=== PATIENT | female | born 1945 | race African-American/Black ===

== ENCOUNTER 2016-12-04 14:59 | Inpatient (IN) | payer MEDICAID, MEDICARE ==
[2016-12-04 15:25] LABS: Basophils % (Auto) 0.2 % (0.0-1.8); Eosinophils % (Auto) 0.5 % (0.0-4.3); Hemoglobin 11.8 gm/dl (10.1-14.3); Mean Corpuscular HGB Conc 34 % (30-34); Mean Corpuscular Hemoglobin 29 pg (28-32); Mean Corpuscular Volume 87 fl (79-97); Platelet Count 403 K/mm3 (140-440); Red Blood Count 4.03 M/mm3 (3.65-5.03); Red Cell Distribution Width 12.5 % (13.2-15.2); White Blood Count 9.4 K/mm3 (4.5-11.0)
[2016-12-04 15:45] LABS: Alanine Aminotransferase 17 units/L (7-56); Albumin 3.3 g/dL (3.9-5); Albumin/Globulin Ratio 0.9 %; Alkaline Phosphatase 65 units/L (35-129); Anion Gap 20 mmol/L; Blood Urea Nitrogen 9 mg/dL (7-17); Carbon Dioxide 23 mmol/L (22-30); Chloride 88.3 mmol/L (98-107); Glucose 107 mg/dL (65-100); Lipase 39 units/L (13-60); Potassium 4.2 mmol/L (3.6-5.0); Sodium 127 mmol/L (137-145)
[2016-12-04] MEDS ORDERED: TYLENOL PO ONE (18:29)
--- NOTE | 2016-12-04 22:07 | Emergency Department Report ---
HPI - General Chief Complaint: Abdominal Pain Time Seen by Provider: 12/04/16 21:16 - HPI HPI: This is a 70-year-old female who presents to the emergency department with generalized abdominal pain for the past few days and is about 3 weeks postop from a cholecystectomy done here at Replaced by [facility] by Dr. Rose. She has had outpatient follow-up since the surgery and everything appeared to be doing fine. She has not had a bowel movement in about 2 days. She denies any nausea, vomiting, back pain, fever. She has a past medical history of asthma, high cholesterol, hypertension. No recent travel or sick contacts at home. She has not taken anything for symptoms prior to presentation. ED Past Medical Hx - Past Medical History Previous Medical History?: Yes Hx Hypertension: Yes Hx Asthma: Yes Hx HIV: No Additional medical history: high cholesterol - Surgical History Past Surgical History?: Yes Hx Cholecystectomy: Yes - Social History Smoking Status: Never Smoker Substance Use Type: None - Medications Home Medications: Home Medications Medication Instructions Recorded Confirmed Last Taken Type Nortriptyline [Pamelor] 25 mg PO QDAY 10/24/16 12/05/16 10/23/16 History Omeprazole Magnesium [PriLOSEC Otc] 40 mg PO QDAY 10/24/16 12/05/16 Unknown History Atenolol [Tenormin] 25 mg PO DAILY 12/05/16 12/05/16 Unknown History Gabapentin [Neurontin] 100 mg PO Q8HR 12/05/16 12/05/16 Unknown History Losartan [Cozaar] 25 mg PO QDAY 12/05/16 12/05/16 Unknown History HYDROcodone/APAP 5-325 [[place] 1 each PO Q6HR PRN #24 tablet 12/06/16 Unknown Rx 5-325 mg TAB] Levofloxacin [Levaquin] 750 mg PO QDAY #7 tablet 12/06/16 Unknown Rx metroNIDAZOLE [Flagyl] 500 mg PO Q8HR #21 tablet 12/06/16 Unknown Rx ED Review of Systems ROS: Stated complaint: POST OP PAIN/ STOMACH SWOLLEN Other details as noted in HPI Comment: All other systems reviewed and negative Constitutional: denies: chills, fever Eyes: denies: eye pain, eye discharge, vision change ENT: denies: ear pain, throat pain Respiratory: denies: cough, shortness of breath, wheezing Cardiovascular: denies: chest pain, palpitations Gastrointestinal: abdominal pain. denies: vomiting Genitourinary: denies: urgency, dysuria, discharge Musculoskeletal: denies: back pain, joint swelling, arthralgia Skin: denies: rash, lesions Neurological: denies: headache, weakness, paresthesias Physical Exam - Physical Exam Vital Signs: Vital Signs 12/04/16 12/04/16 12/04/16 15:02 21:31 21:44 Temperature 98.1 F 98.2 F Pulse Rate 87 85 Respiratory 16 20 20 Rate Blood Pressure 126/79 Blood Pressure 122/67 [Left] O2 Sat by Pulse 99 99 99 Oximetry Physical Exam: GENERAL: The patient is well-developed well-nourished. HEENT: Normocephalic. Atraumatic. Extraocular motions are intact. Patient has moist mucous membranes. NECK: Supple. Trachea is midline. CHEST/LUNGS: Clear to auscultation. There is no respiratory distress noted. HEART/CARDIOVASCULAR: Regular. There is mild tachycardia. There is no gallop rub or murmur. ABDOMEN: Abdomen is soft. Mild tenderness to the upper quadrants of the abdomen. No guarding rebound tenderness. Patient has normal bowel sounds but fluid auscultated. There is moderate abdominal distention. SKIN: There is a well-healed/healing laparoscopy scar to the right upper quadrant of the abdomen. No surrounding erythema and no bleeding or weeping or discharge. NEURO: The patient is awake, alert, and oriented. The patient is cooperative. The patient has no focal neurologic deficits. The patient has normal speech. MUSCULOSKELETAL: There is no tenderness or deformity. There is no limitation range of motion. There is no evidence of acute injury. ED Course Vital Signs 12/04/16 12/04/16 12/04/16 15:02 21:31 21:44 Temperature 98.1 F 98.2 F Pulse Rate 87 85 Respiratory 16 20 20 Rate Blood Pressure 126/79 Blood Pressure 122/67 [Left] O2 Sat by Pulse 99 99 99 Oximetry ED Medical Decision Making - Lab Data Result diagrams: 12/05/16 10:13 12/05/16 10:13 - Radiology Data Radiology results: report reviewed PROCEDURE: CT ABDOMEN PELVIS W CON TECHNIQUE: Computerized axial tomography of the abdomen and pelvis was performed after the IV injection of iodinated nonionic contrast. HISTORY: Abd pain, post op from lap miller COMPARISON: 10/27/2016 FINDINGS: Visualized lower thorax: There are small bilateral pleural effusions. There is atelectasis at the left lung base.. Liver: Normal size and attenuation. Spleen: Normal size and attenuation. Gallbladder and biliary system: There has been a cholecystectomy.. Pancreas: Normal. Adrenals: Normal. Kidneys: There are small bilateral kidney cysts. There are no kidney stones. There is no hydronephrosis.. GI tract: There thickening of the esophagus. The stomach antrum is thickened suggesting gastritis. The small bowel is unremarkable. There is mucosal thickening of the sigmoid colon and transverse colon suggesting colitis. There is no obstruction. The the appendix is not discretely identified.. Lymph nodes and mesentery: There is mesenteric induration. The there are borderline enlarged mesenteric lymph nodes. This could be related to colitis.. Vasculature: Normal. Bladder: Normal. Reproductive organs: Uterus is unremarkable.. Peritoneum: There is a large amount ascites. There is no free air. There is no abscess.. Musculoskeletal structures: No significant abnormality. Other: None. IMPRESSION: There are small bilateral pleural effusions. There is atelectasis at the left lung base.. There has been a cholecystectomy. There is no biliary ductal dilatation.. There thickening of the esophagus. The stomach antrum is thickened suggesting gastritis. The small bowel is unremarkable. There is mucosal thickening of the sigmoid colon and transverse colon suggesting colitis. There is no obstruction. The the appendix is not discretely identified.. There is mesenteric induration. The there are borderline enlarged mesenteric lymph nodes. This could be related to colitis.. There is a large amount ascites. There is no free air. There is no abscess.. Possibility of peritoneal carcinomatosis is not entirely excluded. Percutaneous paracentesis may be diagnostic. Transcribed By: CO Dictated By: MARIZA SEVILLA MD Electronically Authenticated By: MARIZA SEVILLA MD Signed Date/Time: 12/05/16 0240 - Medical Decision Making 71-year-old female presents to the emergency department with a complaint of some abdominal pain and distention. On physical exam the patient has some mild tenderness to palpation but otherwise does not appear to have a toxic original abdomen. There does appear to be some distention and some concern for fluid within the abdomen. Abdominal x-ray did not show any signs of obstruction. Secondary to her recent surgery, a CT of the abdomen and pelvis with IV and by mouth contrast was done that came back showing a large amount of ascites. I went back and looked at previous records for this patient here and she has had a previous elevated CA-125 level which, along with her findings, is concerning for malignancy or a neoplastic process and specifically something [employer] related. The patient will be admitted to the hospital for both a therapeutic and diagnostic paracentesis and further evaluation and has been accepted for admission by the hospitalist, Dr. Daigle. - Differential Diagnosis malignancy, cirrhosis, postop pain, colitis, diverticulitis Critical Care Time: No Critical care attestation.: If time is entered above; I have spent that time in minutes in the direct care of this critically ill patient, excluding procedure time. ED Disposition Clinical Impression: Colitis Ascites Qualifiers: Ascites type: other type Qualified Code(s): R18.8 - Other ascites Abdominal pain Qualifiers: Abdominal location: generalized Qualified Code(s): R10.84 - Generalized abdominal pain Disposition: OP ADMITTED IP TO THIS HOSP Is pt being admited?: Yes Condition: Stable Time of Disposition: 03:08
[2016-12-04 22:45] LABS: Bilirubin,Urine NEG (Negative); Blood,Urine NEG (Negative); Ketones,Urine 20 mg/dL (Negative); Leukocyte Esterase,Urine NEG (Negative); Nitrite,Urine NEG (Negative); Protein,Urine <15 mg/dL mg/dL (Negative); Urobilinogen,Urine < 2.0 mg/dL (<2.0)
[2016-12-04] MEDS ORDERED: NACL 0.9% 1000 ML 1,000 ML IV ONE (23:08)
[2016-12-05] MEDS ORDERED: NACL ONE (01:13)
[2016-12-05] MEDS ORDERED: MORPHINE IV ONE (02:14)
[2016-12-05] MEDS ORDERED: NACL 0.9% 500 ML 500 ML IV ONE (02:15)
--- NOTE | 2016-12-05 02:44 | Cat Scan Report ---
FINAL REPORT PROCEDURE: CT ABDOMEN PELVIS W CON TECHNIQUE: Computerized axial tomography of the abdomen and pelvis was performed after the IV injection of iodinated nonionic contrast. HISTORY: Abd pain, post op from lap miller COMPARISON: 10/27/2016 FINDINGS: Visualized lower thorax: There are small bilateral pleural effusions. There is atelectasis at the left lung base.. Liver: Normal size and attenuation. Spleen: Normal size and attenuation. Gallbladder and biliary system: There has been a cholecystectomy.. Pancreas: Normal. Adrenals: Normal. Kidneys: There are small bilateral kidney cysts. There are no kidney stones. There is no hydronephrosis.. GI tract: There thickening of the esophagus. The stomach antrum is thickened suggesting gastritis. The small bowel is unremarkable. There is mucosal thickening of the sigmoid colon and transverse colon suggesting colitis. There is no obstruction. The the appendix is not discretely identified.. Lymph nodes and mesentery: There is mesenteric induration. The there are borderline enlarged mesenteric lymph nodes. This could be related to colitis.. Vasculature: Normal. Bladder: Normal. Reproductive organs: Uterus is unremarkable.. Peritoneum: There is a large amount ascites. There is no free air. There is no abscess.. Musculoskeletal structures: No significant abnormality. Other: None. IMPRESSION: There are small bilateral pleural effusions. There is atelectasis at the left lung base.. There has been a cholecystectomy. There is no biliary ductal dilatation.. There thickening of the esophagus. The stomach antrum is thickened suggesting gastritis. The small bowel is unremarkable. There is mucosal thickening of the sigmoid colon and transverse colon suggesting colitis. There is no obstruction. The the appendix is not discretely identified.. There is mesenteric induration. The there are borderline enlarged mesenteric lymph nodes. This could be related to colitis.. There is a large amount ascites. There is no free air. There is no abscess.. Possibility of peritoneal carcinomatosis is not entirely excluded. Percutaneous paracentesis may be diagnostic.
[2016-12-05] MEDS ORDERED: ZOSYN/NS 4.5GM/100ML 4.5 GM/100 ML VIAL IV ONE (03:04)
[2016-12-05] MEDS ORDERED: ZOFRAN IV PRN (03:15)
[2016-12-05] MEDS ORDERED: MILK OF MAGNESIA PO PRN (03:15)
[2016-12-05] MEDS ORDERED: TYLENOL PO PRN (03:15)
[2016-12-05] MEDS ORDERED: DULCOLAX PR PRN (03:15)
--- NOTE | 2016-12-05 03:21 | History and Physical Report ---
History of Present Illness Date of examination: 12/05/16 History of present illness: 71-year-old woman with a history of hypertension, hyperlipidemia, status post cholecystectomy 2 weeks ago comes emergency room with abdominal pain. Abdominal pain is all overr, intermittent in nature, unable to say how long it lasts for, intensity 7/10, no radiation, she cannot identify exacerbating factors. He patient the she started having increased abdominal girth after cholecystectomy. Review of chart shows that the patient had an elevated CA-125 in October. Patient denies chest pain, palpitation, shortness of breath, cough, abdominal pain, hematochezia, dysuria, frequency, focal weakness, dysarthria, fever chills , polydipsia polyuria, hot or cold intolerance, easy bruisability, or rash or bleeding from mucosal membrane, rhinorrhea, epistaxis, earache, tinnitus, blurry vision, eye discharge, anxiety, depression. Other review of systems negative PAST SURGICAL HISTORY: Cholecystectomy SOCIAL HISTORY: Denies alcohol, tobacco, drugs FAMILY HISTORY: Hypertension Medications and Allergies Allergies Allergy/AdvReac Type Severity Reaction Status Date / Time No Known Allergies Allergy Unverified 10/24/16 13:41 Home Medications Medication Instructions Recorded Confirmed Last Taken Type Nortriptyline [Pamelor] 25 mg PO QDAY 10/24/16 12/05/16 10/23/16 History Omeprazole Magnesium [PriLOSEC Otc] 40 mg PO QDAY 10/24/16 12/05/16 Unknown History Atenolol [Tenormin] 25 mg PO DAILY 12/05/16 12/05/16 Unknown History Gabapentin [Neurontin] 100 mg PO Q8HR 12/05/16 12/05/16 Unknown History Losartan [Cozaar] 25 mg PO QDAY 12/05/16 12/05/16 Unknown History HYDROcodone/APAP 5-325 [[place] 1 each PO Q6HR PRN #24 tablet 12/06/16 Unknown Rx 5-325 mg TAB] Levofloxacin [Levaquin] 750 mg PO QDAY #7 tablet 12/06/16 Unknown Rx Polyethylene Glycol 3350 [Miralax 17 gm PO QDAY PRN #30 packet 12/06/16 Unknown Rx 3350] Sennosides/Docusate Sodium 2 each PO HS PRN #60 tablet 12/06/16 Unknown Rx [Senna-S Tablet] metroNIDAZOLE [Flagyl] 500 mg PO Q8HR #21 tablet 12/06/16 Unknown Rx Active Meds: Active Medications Piperacillin Sod/Tazobactam Sod (Zosyn/Ns 4.5gm/100ml) 4.5 gm in 100 mls @ 200 mls/hr IV ONCE ONE Stop: 12/05/16 03:33 Exam - Physical Exam Narrative exam: Gen. appearance: Patient lying in bed, no apparent distress HEENT: Normocephalic, atraumatic, pupils equally round and reactive to light, extraocular movement intact, and no sclericterus,. No JVD or thyromegaly or nodule,neck supple, no carotid bruit ,mucous membranes moist, no exudate or erythema Heart: S1, S2, regular rate and rhythm Lungs: Clear to auscultation bilaterally, breathing comfortable Abdomen: Positive bowel sounds, distended, + fluid wave, no organomegaly Extremity: No edema, cyanosis, clubbing Skin: No rash, nodules, warm, dry Neuro: Oriented 3, cranial nerves II-12 intact, speech is fluent, motor and sensory intact - Constitutional Vitals: Temp Pulse Resp BP Pulse Ox 98.3 F 95 H 20 136/88 98 12/05/16 02:13 12/05/16 02:13 12/05/16 02:27 12/05/16 02:13 12/05/16 02:13 Results - Labs CBC & Chem 7: 12/05/16 10:13 12/05/16 10:13 Labs: Abnormal lab results 12/04/16 12/04/16 Range/Units 15:12 15:12 RDW 12.5 L (13.2-15.2) % [place] % (Auto) 12.1 H (0.0-7.3) % [place] # 1.1 H (0.0-0.8) K/mm3 Seg Neutrophils % 73.5 H (40.0-70.0) % Sodium 127 L (137-145) mmol/L Chloride 88.3 L (98-107) mmol/L Creatinine 0.6 L (0.7-1.2) mg/dL Glucose 107 H (65-100) mg/dL Albumin 3.3 L (3.9-5) g/dL - Imaging and Cardiology CT scan - abdomen: report reviewed CT scan - pelvis: report reviewed Assessment and Plan Acute colitis Ascites with elevated CA 125, rule out ovarian cancer Hypertension Hyperlipidemia Admit to medicine Start IV Levaquin, Flagyl, consult GI Consult interventional radiology for diagnostic and therapeutic paracentesis Consult oncology Start IV morphine, continue appropriate outpatient medications Start DVT prophylaxis
--- NOTE | 2016-12-05 04:21 | Admit Criteria Form ---
Admission Criteria Documentation: ABDOMINAL PAIN Clinical Indications for Admission to Inpatient Care (Place 'X' for any and all applicable criteria): Admission is indicated for ANY ONE of the following(1)(2)(3)(4)(5): [X ]I. Inpatient admission required rather than observation care (Also use Abdominal Pain: Observation Care, as appropriate) because of ANY ONE of the following: [ ]a) Severe pain requiring acute inpatient management [X ]b) Identification of etiology/finding that requires inpatient care (eg, aortic dissection, free air) [ ]c) Absent bowel sounds with complete ileus(6) [ ]d) Suspected toxic megacolon [ ]e) Severe electrolyte abnormalities requiring inpatient care [ ]f) High fever or infection requiring inpatient admission as indicated by ANY ONE of following(7)(8): [ ] i) Appropriate outpatient or observational care antimicrobial treatment unavailable, not effective, or not feasible [ ] ii) Documented bacteremia [ ] iii) Temperature > 104.9 degrees F (oral) [ ] iv) T >103.1 F (oral) or < 96.8 F(rectal) that does not respond to all emergency treatment measures [ ]g) Signs of intestinal obstruction [B] [ ]h) Hemodynamic instability [ ]i) IV fluid to replace significant ongoing losses (greater than 3 L/m2 per day) (12)(13) [ ]j) Percutaneous or open drainage (eg, abscess, biliary tract ) procedures [ ]k) Parenteral nutrition regimen that must be implemented on inpatient basis [ ]l) Other condition,treatment or monitoring requiring inpatient admission. [ ]II. Peritoneal signs present [ ]III. Surgery needed that cannot be performed on an ambulatory basis. [ ]IV. Evaluation requires patient to not eat or drink for extended period ( eg, more than 24 hours). [ ]V. Contraindications and/or Inappropriate clinical situations for Observational Care in patients with abdominal pain, when ANY ONE of the following is required: [ ]a) Thorough evaluation is required to prevent catastrophic events due to delays in diagnosing (e.g.Mesenteric ischemia) 1,3 [ ]b) Patient with severe pathology or with chronic symptoms unlikely to improve in the ED stay (3) [X ]. General contraindications and/or Inappropriate clinical situations for Observational Care in patients with abdominal pain, when ANY ONE of the following is required: [X ]a) Prediction of prolongation of LOS based on ANY ONE of the following may be considered as a contraindication for observational care 2, 3, 4, 5, 6, 7, 8, 9, 10, 11 [ X]i) Age > 65 yrs. [ ]ii) Patient arriving by ambulance [ ]iii) Patient with high acuity [ ]iv) Patient requiring vital sign monitoring [ ]v) Patient on IV medication [ ]b) Systolic blood pressures 180mmHg 3,12 [ ]c) Patient with altered mental status including delirium and other alteration of consciousness, (3) [ ]d) Patient whose discharge disposition will be to a nursing home home or rehabilitation home should not be managed in Emergency Department Observation Unit. CMS rule requires 3 days hospital stay before such placement.3,13 [ ]e) Patient with failure to thrive due to broad array of etiologies 3,16,17 [ ]f) Inability to ambulate 3,14 Extended stay beyond goal length of stay may be needed for(2)(3): [ ]a) Persistent abdominal pain with suspected intra-abdominal process [ ]b) Diagnosed condition requiring continued stay (e.g., pancreatitis, complicated diverticulitis) [ ]c) Surgery (e.g., colectomy) The original [facility] [email or web address] content created by [email or web address] has been revised. The portions of the content which have been revised are identified through the use of italic text or in bold, and [facility] has neither reviewed nor approved the modified material.All other unmodified content is copyright [employer]. Please see references footnoted in the original [facility] edition 2016 Admission Criteria Met: Yes
[2016-12-05] MEDS: FLAGYL 500 MG/100 ML 500 MG/100 ML BAG IV SCH ×3 (06:14→21:17)
--- NOTE | 2016-12-05 09:15 | Gastroenterology Consultation ---
<TAYLOR DOTY - Last Filed: 12/05/16 09:41> History of Present Illness - Reason for Consult Consult date: 12/05/16 acute colitis Requesting physician: MANDI SHANKS - History of Present Illness Patient is a 71 y/o female, who speaks very little Bulgarian. Pt sitting up in bed with family at bedside who assisted with translation. PMH of HTN and hyperlipidemia. She was admitted with generalized abdominal pain yesterday. Rating pain a 5/10 today. Reports abd pain and swelling began after colecystectomy 2 weeks ago. Patient was noted to have an elevated CA125 back in October. Family reports a 15 lb wt loss over the past month. Patient denies fever, chills, N/V, hematemesis, diarrhea, constipation, melena, or hematochezia. No tobacco, alcohol, or NSAID use. No FHX of CA. No hx of CHG, liver disease or IBD. Previous colonoscopy unknown. Past History Past Medical History: hypertension, hyperlipidemia Past Surgical History: cholecystectomy Social history: no significant social history Family history: no significant family history Medications and Allergies Allergies Allergy/AdvReac Type Severity Reaction Status Date / Time No Known Allergies Allergy Unverified 10/24/16 13:41 Home Medications Medication Instructions Recorded Confirmed Last Taken Type Nortriptyline [Pamelor] 25 mg PO QDAY 10/24/16 12/05/16 10/23/16 History Omeprazole Magnesium [PriLOSEC Otc] 40 mg PO QDAY 10/24/16 12/05/16 Unknown History HYDROcodone/APAP 5-325 [[place] 1 each PO Q6HR PRN #24 tablet 11/16/16 12/05/16 Unknown Rx 5/325] Atenolol [Tenormin] 25 mg PO DAILY 12/05/16 12/05/16 Unknown History Gabapentin [Neurontin] 100 mg PO Q8HR 12/05/16 12/05/16 Unknown History Losartan [Cozaar] 25 mg PO QDAY 12/05/16 12/05/16 Unknown History Active Meds: Active Medications Acetaminophen (Tylenol) 650 mg PO Q4H PRN PRN Reason: Pain MILD(1-3)/Fever >100.5/ALBRECHT Bisacodyl (Dulcolax) 10 mg [place] QDAY PRN PRN Reason: Constipation unrelieved by MOM Enoxaparin Sodium (Lovenox) 40 mg SUB-Q QDAY [facility] Levofloxacin/Dextrose (Levaquin 750mg/150ml) 750 mg in 150 mls @ 100 mls/hr IV Q24HR [facility] PRN Reason: Protocol Metronidazole (Flagyl 500 Mg/100 Ml) 500 mg in 100 mls @ 100 mls/hr IV Q8HR SANDRA Last Admin: 12/05/16 06:14 Dose: 100 mls/hr Magnesium Hydroxide (Milk Of Magnesia) 30 ml PO Q4H PRN PRN Reason: Constipation Last Admin: 12/05/16 06:15 Dose: 30 ml Morphine Sulfate (Morphine) 2 mg IV Q4H PRN PRN Reason: Pain, Moderate (4-6) Ondansetron HCl (Zofran) 4 mg IV Q4H PRN PRN Reason: N/V unrelieved by Reglan Review of Systems - Review of Systems All systems: negative Constitutional: weight loss Gastrointestinal: abdominal pain Exam - Constitutional Vital Signs: Temp Pulse Resp BP Pulse Ox 98.3 F 95 H 18 136/88 98 12/05/16 02:13 12/05/16 02:13 12/05/16 05:45 12/05/16 02:13 12/05/16 05:45 General appearance: no acute distress - EENT Eyes: PERRL, EOM intact ENT: hearing intact - Neck Neck: normal ROM - Respiratory Respiratory: bilateral: CTA (anterior) - Cardiovascular Rhythm: regular Heart Sounds: Present: S1 & S2 Extremities: No edema - Gastrointestinal General gastrointestinal: Present: tender (generalized), distended, normal bowel sounds - Integumentary Integumentary: Present: warm, dry - Neurologic Neurological: alert and oriented x3 - Psychiatric Psychiatric: appropriate mood/affect, cooperative - Labs CBC & Chem 7: 12/04/16 15:12 12/04/16 15:12 Assessment and Plan 1. Acute colitis 2. Ascites -CT scan revealed- no bowel obstruction, mucosal thickening of sigmoid/ transverse colon, possible gastritis, and large amount of ascites (possible peritoneal carcinomatosis, no biliary ductal dilation -afebrile, WBC- WNL -liver enzymes WNL -PT/INR-pending -will order HbsAg and HC Ab -etiology of ascites unknown, paracentesis scheduled for today (r/o ovarian CA) - awaiting cytology and oncology recommendations -etiology of colitis inflammatory vs infectious -continue levaquin and flagyl -Will order stool studies -further recommendations to follow -will follow <RITU KNIGHT - Last Filed: 12/05/16 15:41> Medications and Allergies Active Meds: Active Medications Acetaminophen (Tylenol) 650 mg PO Q4H PRN PRN Reason: Pain MILD(1-3)/Fever >100.5/ALBRECHT Acetaminophen/Hydrocodone Bitart ([place] 5/325) 1 each PO Q6HR PRN PRN Reason: Pain Atenolol (Tenormin) 25 mg PO DAILY [facility] Bisacodyl (Dulcolax) 10 mg CA QDAY PRN PRN Reason: Constipation unrelieved by MOM Enoxaparin Sodium (Lovenox) 40 mg SUB-Q QDAY [facility] Last Admin: 12/05/16 10:00 Dose: Not Given Gabapentin (Neurontin) 100 mg PO Q8HR [facility] Last Admin: 12/05/16 14:10 Dose: 100 mg Levofloxacin/Dextrose (Levaquin 750mg/150ml) 750 mg in 150 mls @ 100 mls/hr IV Q24HR [facility] PRN Reason: Protocol Last Admin: 12/05/16 09:54 Dose: 100 mls/hr Metronidazole (Flagyl 500 Mg/100 Ml) 500 mg in 100 mls @ 100 mls/hr IV Q8HR [facility]DR[facility] Last Admin: 12/05/16 14:10 Dose: 100 mls/hr Losartan Potassium (Cozaar) 25 mg PO QDAY [facility] Magnesium Hydroxide (Milk Of Magnesia) 30 ml PO Q4H PRN PRN Reason: Constipation Last Admin: 12/05/16 06:15 Dose: 30 ml Morphine Sulfate (Morphine) 2 mg IV Q4H PRN PRN Reason: Pain, Moderate (4-6) Nortriptyline HCl (Pamelor) 25 mg PO QDAY [facility] Ondansetron HCl (Zofran) 4 mg IV Q4H PRN PRN Reason: N/V unrelieved by Reglan Pantoprazole Sodium (Protonix) 40 mg PO DAILY [facility] Exam - Constitutional Vital Signs: Temp Pulse Resp BP Pulse Ox 98.9 F 123 H 18 125/76 96 12/05/16 10:00 12/05/16 10:00 12/05/16 10:00 12/05/16 10:00 12/05/16 14:29 - Labs CBC & Chem 7: 12/05/16 10:13 12/05/16 10:13 Lab Results: Laboratory Results - last 24 hr 12/05/16 12/05/16 12/05/16 09:14 10:13 10:13 WBC 9.2 RBC 4.08 Hgb 11.8 Hct 35.7 MCV 87 MCH 29 MCHC 33 RDW 12.7 L Plt Count 389 Lymph % (Auto) 5.3 L [place] % (Auto) 10.6 H Eos % (Auto) 0.2 Baso % (Auto) 0.1 Lymph # 0.5 L [place] # 1.0 H Eos # 0.0 Baso # 0.0 Seg Neutrophils % 83.8 H Seg Neutrophils # 7.7 PT 15.0 H INR 1.19 H Sodium 131 L Potassium 3.8 Chloride 93.8 L Carbon Dioxide 22 Anion Gap 19 BUN 6 L Creatinine 0.5 L Estimated GFR > 60 BUN/Creatinine Ratio 12.00 Glucose 174 H Calcium 8.8 Total Bilirubin 0.30 AST 26 ALT 20 Alkaline Phosphatase 68 Total Protein 6.4 Albumin 3.1 L Albumin/Globulin Ratio 0.9 Fluid Type Fluid Color Fluid Appearance Fluid WBC Fluid RBC Fluid Seg Neutrophils Fluid Lymphocytes Fluid Reactive Lymphs Fluid Monocytes Fluid Eosinophils Fluid Basophils Fluid Comment Hep Bs Antigen Hepatitis C Antibody 12/05/16 12/05/16 12/05/16 10:13 10:13 Unknown WBC RBC Hgb Hct MCV MCH MCHC RDW Plt Count Lymph % (Auto) [place] % (Auto) Eos % (Auto) Baso % (Auto) Lymph # [place] # Eos # Baso # Seg Neutrophils % Seg Neutrophils # PT INR Sodium Potassium Chloride Carbon Dioxide Anion Gap BUN Creatinine Estimated GFR BUN/Creatinine Ratio Glucose Calcium Total Bilirubin AST ALT Alkaline Phosphatase Total Protein Albumin Albumin/Globulin Ratio Fluid Type Paracentesis Fluid Color Yellow Fluid Appearance Hazy Fluid WBC 528 Fluid RBC 2063 Fluid Seg Neutrophils 7.0 Fluid Lymphocytes 67.0 Fluid Reactive Lymphs 0 Fluid Monocytes 26.0 Fluid Eosinophils 0 Fluid Basophils 0 Fluid Comment Diff performed Hep Bs Antigen Non-reactive Hepatitis C Antibody Non-reactive Assessment and Plan Patient seen and examined. Agree with note by Taylor Doty. Pt with recent CCY , presenting with ascites, abd pain, and weight loss. No history of known liver disease or ascites. CT findings reviewed showing abnormal mesenteric lymph nodes, along with colitis (denies diarrhea, ?related to low albumin), ascites, and non-specific thickening of esophagus and stomach (denies dysphagia) . Previously with elevated CA 125 (in 500s). Concern for neoplastic process/ malignant ascites (particularly ovarian cancer). Will f/u diagnostic paracentesis results. Check stool studies if diarrhea occurs. Follow-up oncology recommendations.
--- NOTE | 2016-12-05 09:44 | Hem/Onc Consultation ---
History of Present Illness - Reason for Consult Consult date: 12/05/16 - History of Present Illness Dictated. For paracentesis today. We will follow. Discussed with patient's family in detail. Reorder CA-125 CA 199 Past History Past Medical History: hypertension, hyperlipidemia Past Surgical History: cholecystectomy Social history: no significant social history Family history: no significant family history Medications and Allergies Allergies Allergy/AdvReac Type Severity Reaction Status Date / Time No Known Allergies Allergy Unverified 10/24/16 13:41 Home Medications Medication Instructions Recorded Confirmed Last Taken Type Nortriptyline [Pamelor] 25 mg PO QDAY 10/24/16 12/05/16 10/23/16 History Omeprazole Magnesium [PriLOSEC Otc] 40 mg PO QDAY 10/24/16 12/05/16 Unknown History HYDROcodone/APAP 5-325 [[place] 1 each PO Q6HR PRN #24 tablet 11/16/16 12/05/16 Unknown Rx 5/325] Atenolol [Tenormin] 25 mg PO DAILY 12/05/16 12/05/16 Unknown History Gabapentin [Neurontin] 100 mg PO Q8HR 12/05/16 12/05/16 Unknown History Losartan [Cozaar] 25 mg PO QDAY 12/05/16 12/05/16 Unknown History Active Meds: Active Medications Acetaminophen (Tylenol) 650 mg PO Q4H PRN PRN Reason: Pain MILD(1-3)/Fever >100.5/ALBRECHT Bisacodyl (Dulcolax) 10 mg DC QDAY PRN PRN Reason: Constipation unrelieved by MOM Enoxaparin Sodium (Lovenox) 40 mg SUB-Q QDAY [facility] Levofloxacin/Dextrose (Levaquin 750mg/150ml) 750 mg in 150 mls @ 100 mls/hr IV Q24HR [facility] PRN Reason: Protocol Metronidazole (Flagyl 500 Mg/100 Ml) 500 mg in 100 mls @ 100 mls/hr IV Q8HR [facility] Last Admin: 12/05/16 06:14 Dose: 100 mls/hr Magnesium Hydroxide (Milk Of Magnesia) 30 ml PO Q4H PRN PRN Reason: Constipation Last Admin: 12/05/16 06:15 Dose: 30 ml Morphine Sulfate (Morphine) 2 mg IV Q4H PRN PRN Reason: Pain, Moderate (4-6) Ondansetron HCl (Zofran) 4 mg IV Q4H PRN PRN Reason: N/V unrelieved by Reglan Exam - Constitutional Vitals: Last Vital Signs Temp 98.3 F 12/05/16 02:13 Pulse 95 H 12/05/16 02:13 Resp 18 12/05/16 05:45 BP 136/88 12/05/16 02:13 Pulse Ox 98 12/05/16 05:45
[2016-12-05 09:50] LABS: INR 1.19 (0.87-1.13)
[2016-12-05] MEDS: LEVAQUIN 750MG/150ML 750 MG/150 ML BAG IV SCH (09:54)
[2016-12-05] MEDS: LOVENOX SUB-Q SCH (10:00)
[2016-12-05 10:35] LABS: Basophils % (Auto) 0.1 % (0.0-1.8); Eosinophils % (Auto) 0.2 % (0.0-4.3); Hematocrit 35.7 % (30.3-42.9); Hemoglobin 11.8 gm/dl (10.1-14.3); Mean Corpuscular HGB Conc 33 % (30-34); Mean Corpuscular Hemoglobin 29 pg (28-32); Mean Corpuscular Volume 87 fl (79-97); Platelet Count 389 K/mm3 (140-440); Red Blood Count 4.08 M/mm3 (3.65-5.03); Red Cell Distribution Width 12.7 % (13.2-15.2); White Blood Count 9.2 K/mm3 (4.5-11.0)
[2016-12-05 11:25] LABS: Alanine Aminotransferase 20 units/L (7-56); Albumin 3.1 g/dL (3.9-5); Albumin/Globulin Ratio 0.9 %; Alkaline Phosphatase 68 units/L (35-129); Anion Gap 19 mmol/L; Blood Urea Nitrogen 6 mg/dL (7-17); Calcium 8.8 mg/dL (8.4-10.2); Carbon Dioxide 22 mmol/L (22-30); Chloride 93.8 mmol/L (98-107); Glucose 174 mg/dL (65-100); Potassium 3.8 mmol/L (3.6-5.0); Sodium 131 mmol/L (137-145); Total Protein 6.4 g/dL (6.3-8.2)
[2016-12-05] MEDS ORDERED: NORCO 5/325 PO PRN (13:06)
[2016-12-05] MEDS: NEURONTIN PO SCH ×2 (14:10→21:20)
--- NOTE | 2016-12-05 14:25 | Ultrasound Report ---
ULTRASOUND PARACENTESIS History: Ascites Description of procedure: Informed consent was obtained with the use of an bilingual interpreter. The patient was given the opportunity to ask questions. Sterile technique was utilized. 1% lidocaine for skin anesthesia. Using ultrasound guidance, a 5 Greek centesis needle was advanced into the right lower quadrant peritoneal space. There was spontaneous return of yellow, slightly cloudy fluid. 1.5 L of fluid was aspirated. 120 cc of fluid was sent to the laboratory for analysis. No complications. Impression: Successful ultrasound guided paracentesis as described.
--- NOTE | 2016-12-05 14:32 | Progress Note ---
Assessment and Plan Assessment and plan: 71F who presented with abdominal pain and abdominal distenstion Acute colitis continue abx, continue ivf Ascites with elevated CA 125, rule out ovarian cancer sp paracentesis, fluid sent for cytology oncology consulted Hypertension continue medications Hyperlipidemia continue meds Moderate malnutrition counseled on improved balanced diet History Interval history: abdominal pain is now improved, continues to have dull periumbilical abdominal pain, no radiation, no exacerbating factors Hospitalist Physical - Physical exam Narrative exam: General: Patient appears well in no distress, appears chronically ill HEENT: MMM, EOMI cardiac: S1-S2 heard lungs: clear to auscultation, abdomen: soft, nontender, nondistended bowel sounds positive extremities: no edema clubbing or cyanosis Skin: no rash or lesion Neuro: no focal deficit Psych: appropriate behavior and mood, cognition intact - Constitutional Vitals: Temp Pulse Resp BP Pulse Ox 98.9 F 123 H 18 125/76 96 12/05/16 10:00 12/05/16 10:00 12/05/16 10:00 12/05/16 10:00 12/05/16 14:29 Results - Labs CBC & Chem 7: 12/05/16 10:13 12/05/16 10:13 Labs: Laboratory Last Values WBC 9.2 K/mm3 (4.5-11.0) 12/05/16 10:13 RBC 4.08 M/mm3 (3.65-5.03) 12/05/16 10:13 Hgb 11.8 gm/dl (10.1-14.3) 12/05/16 10:13 Hct 35.7 % (30.3-42.9) 12/05/16 10:13 MCV 87 fl (79-97) 12/05/16 10:13 MCH 29 pg (28-32) 12/05/16 10:13 MCHC 33 % (30-34) 12/05/16 10:13 RDW 12.7 % (13.2-15.2) L 12/05/16 10:13 Plt Count 389 K/mm3 (140-440) 12/05/16 10:13 Lymph % (Auto) 5.3 % (13.4-35.0) L 12/05/16 10:13 [place] % (Auto) 10.6 % (0.0-7.3) H 12/05/16 10:13 Eos % (Auto) 0.2 % (0.0-4.3) 12/05/16 10:13 Baso % (Auto) 0.1 % (0.0-1.8) 12/05/16 10:13 Lymph # 0.5 K/mm3 (1.2-5.4) L 12/05/16 10:13 [place] # 1.0 K/mm3 (0.0-0.8) H 12/05/16 10:13 Eos # 0.0 K/mm3 (0.0-0.4) 12/05/16 10:13 Baso # 0.0 K/mm3 (0.0-0.1) 12/05/16 10:13 Seg Neutrophils % 83.8 % (40.0-70.0) H 12/05/16 10:13 Seg Neutrophils # 7.7 K/mm3 (1.8-7.7) 12/05/16 10:13 PT 15.0 Sec. (12.2-14.9) H 12/05/16 09:14 INR 1.19 (0.87-1.13) H 12/05/16 09:14 Sodium 131 mmol/L (137-145) L 12/05/16 10:13 Potassium 3.8 mmol/L (3.6-5.0) 12/05/16 10:13 Chloride 93.8 mmol/L (98-107) L 12/05/16 10:13 Carbon Dioxide 22 mmol/L (22-30) 12/05/16 10:13 Anion Gap 19 mmol/L 12/05/16 10:13 BUN 6 mg/dL (7-17) L 12/05/16 10:13 Creatinine 0.5 mg/dL (0.7-1.2) L 12/05/16 10:13 Estimated GFR > 60 ml/min 12/05/16 10:13 BUN/Creatinine Ratio 12.00 % 12/05/16 10:13 Glucose 174 mg/dL (65-100) H 12/05/16 10:13 Calcium 8.8 mg/dL (8.4-10.2) 12/05/16 10:13 Total Bilirubin 0.30 mg/dL (0.1-1.2) 12/05/16 10:13 AST 26 units/L (5-40) 12/05/16 10:13 ALT 20 units/L (7-56) 12/05/16 10:13 Alkaline Phosphatase 68 units/L (35-129) 12/05/16 10:13 Total Protein 6.4 g/dL (6.3-8.2) 12/05/16 10:13 Albumin 3.1 g/dL (3.9-5) L 12/05/16 10:13 Albumin/Globulin Ratio 0.9 % 12/05/16 10:13 Lipase 39 units/L (13-60) 12/04/16 15:12 Urine Color Straw (Yellow) 12/04/16 22:08 Urine Turbidity Clear (Clear) 12/04/16 22:08 Urine pH 6.0 (5.0-7.0) 12/04/16 22:08 Ur Specific [place] 1.008 (1.003-1.030) 12/04/16 22:08 Urine Protein <15 mg/dl mg/dL (Negative) 12/04/16 22:08 Urine Glucose (UA) Neg mg/dL (Negative) 12/04/16 22:08 Urine Ketones 20 mg/dL (Negative) 12/04/16 22:08 Urine Blood Neg (Negative) 12/04/16 22:08 Urine Nitrite Neg (Negative) 12/04/16 22:08 Urine Bilirubin Neg (Negative) 12/04/16 22:08 Urine Urobilinogen < 2.0 mg/dL (<2.0) 12/04/16 22:08 Ur Leukocyte Esterase Neg (Negative) 12/04/16 22:08 Urine WBC (Auto) 1.0 /HPF (0.0-6.0) 12/04/16 22:08 Urine RBC (Auto) 2.0 /HPF (0.0-6.0) 12/04/16 22:08 Fluid Type Paracentesis 12/05/16 Unknown Fluid WBC 528 /mm3 12/05/16 Unknown Fluid RBC 2063 /mm3 12/05/16 Unknown Hep Bs Antigen Non-reactive (Negative) 12/05/16 10:13 Hepatitis C Antibody Non-reactive (NonReactive) 12/05/16 10:13
[2016-12-05 15:29] LABS: Basophils Body Fluid 0 %; Eosinophils Body Fluid 0 %; Reactive Lymph Body Fluid 0 %
--- NOTE | 2016-12-06 03:47 | Consultation ---
REFERRING PHYSICIAN: Dr. Connie Daigle. REASON FOR CONSULTATION: Ascites and elevated CA-125. HISTORY OF PRESENT ILLNESS: The patient is a 71-year-old female who has history of hypertension, hyperlipidemia. She had a recent cholecystectomy 2 weeks ago. She started having more abdominal pain, intermittent in nature. She has not had a bowel movement in a couple of days. She has loss of appetite, loss of weight. She was also noting increased abdominal girth after cholecystectomy. She did have a CA-125 in October during her admission with abdominal pain which was elevated ____ results came after she was discharged. Her CA-125 then was 528. Because of the ascites and elevated CA-125, Oncology consult was called. She did have a CT of the abdomen during this admission and she was found to have evidence of ascites. She also had evidence of mesenteric induration with borderline enlarged mesenteric lymph nodes. There was also evidence of mucosal thickening in the sigmoid and transverse colon, suggesting colitis. There was also possibility of peritoneal carcinomatosis. The patient is to undergo paracentesis today. She has no history of malignancy, no family history of malignancy. She has not had a [employer] check in a long time as per the family. She has been getting her mammograms, etc. PAST MEDICAL HISTORY: Positive for hypertension, recent evidence of cholecystectomy. Pathology did not show malignancy on the cholecystectomy. SOCIAL HISTORY: Does not smoke or drink. FAMILY HISTORY: Unremarkable. REVIEW OF SYSTEMS: Positive for weight loss, abdominal distention, weakness, loss of appetite. PHYSICAL EXAMINATION: GENERAL: The patient is a frail looking female in no acute distress. She is weak physically. HEAD AND ENT: Unremarkable for any adenopathy. CHEST: Decreased breath sounds at the bases. CVS: Regular rate and rhythm. ABDOMEN: Shows evidence of distention. EXTREMITY: No clubbing cyanosis or edema. There is no ____. LABORATORY DATA: Hemoglobin 11.8, white count 9.4, platelets 403,000. Differential is unremarkable. Sodium 127, BUN 9, creatinine 0.6. ASSESSMENT: 1. Ascites with elevated CA-125, highly suggestive of possible [employer]IVER malignancy in this patient 2. ? Colitis, Gastroenterology on the case. 3. Hyponatremia, could be from malignancy. Imaging done at this time. The patient is to undergo paracentesis. We will follow up on the results. Discussed her case it the patient's [id number] over the phone who speaks Divehi. We will follow. JOB# [id number] SUSHIL/MAGDALENO
[2016-12-06] MEDS: NEURONTIN PO SCH (05:27)
[2016-12-06] MEDS: FLAGYL 500 MG/100 ML 500 MG/100 ML BAG IV SCH (05:28)
[2016-12-06] MEDS: MORPHINE IV PRN ×2 (05:29→10:14)
--- NOTE | 2016-12-06 08:32 | Discharge Summary ---
Providers - Providers Date of Admission: 12/05/16 03:15 Attending physician: PHILLIP RUSSELL MD 12/05/16 03:53 Consult to Physician [CONS] Routine Consulting Provider: SIMRAN GUZMAN Reason For Exam: colituis Place consult to:: Notified:: 12/05/16 03:54 Consult to Physician [CONS] Routine Consulting Provider: LAWRENCE KOENIG Reason For Exam: ascites, incr ca125 Place consult to:: FLAQUITA ANAND Notified:: FLAQUITA ANAND Primary care physician: JADON BERNSTEIN Hospitalization Condition: Stable Hospital course: 71F who presented with abdominal pain and abdominal distenstion Diagnosis Acute colitis She was treated with IV antibiotics and IV fluids, she'll complete her course of oral antibiotics at home Ascites She received a paracentesis and fluid was lymphocyte predominant, given elevated CEA 125 there is high suspicion of ovarian cancer, and malignant ascites She was seen by oncology who will follow her in oncology clinic to review her cytology results when they finalize Hypertension continue medications Hyperlipidemia continue meds Moderate malnutrition counseled on improved balanced diet Disposition: DC-01 TO HOME OR SELFCARE Time spent for discharge: 35 minutes Core Measure Documentation - Palliative Care Palliative Care/ Comfort Measures: Not Applicable - Core Measures Any of the following diagnoses?: none Exam - Constitutional Vitals: Temp Pulse Resp BP Pulse Ox 98.9 F 123 H 20 125/76 96 12/05/16 10:00 12/05/16 10:00 12/06/16 05:29 12/05/16 10:00 12/05/16 14:29 General appearance: Present: no acute distress, well-nourished - EENT Eyes: Present: PERRL ENT: hearing intact, clear oral mucosa - Neck Neck: Present: supple, normal ROM - Respiratory Respiratory effort: normal Respiratory: bilateral: CTA - Cardiovascular Heart Sounds: Present: S1 & S2. Absent: rub, click - Extremities Extremities: pulses symmetrical, No edema Peripheral Pulses: within normal limits - Abdominal General gastrointestinal: Present: soft, non-tender, non-distended, normal bowel sounds Female genitourinary: Present: normal - Integumentary Integumentary: Present: clear, warm, dry - Musculoskeletal Musculoskeletal: gait normal, strength equal bilaterally - Psychiatric Psychiatric: appropriate mood/affect, intact judgment & insight - Neurologic Neurologic: CNII-XII intact, moves all extremities Plan Follow up with: PRIMARY CARE, [Referring] - 3-5 Days SHELLI SAMS MD [Staff Physician] - 7 Days RITU KNIGHT MD [Staff Physician] - 7 Days Prescriptions: HYDROcodone/APAP 5-325 [[place] 5-325 mg TAB] 1 each PO Q6HR PRN #24 tablet PRN Reason: Pain Levofloxacin [Levaquin] 750 mg PO QDAY #7 tablet metroNIDAZOLE [Flagyl] 500 mg PO Q8HR #21 tablet Polyethylene Glycol 3350 [Miralax 3350] 17 gm PO QDAY PRN #30 packet PRN Reason: Constipation Sennosides/Docusate Sodium [Senna-S Tablet] 2 each PO HS PRN #60 tablet PRN Reason: Nausea
--- NOTE | 2016-12-06 09:25 | Hem/Onc Progress Note ---
Assessment and Plan We will follow-up on the cytology. If the patient gets discharged, I would like to see her in my office in the next week or so. Subjective Date of service: 12/06/16 Interval history: Patient feels better. Is having some diarrhea. No other significant problems. She did have paracentesis done. Results of the cytology are pending. Results of CA-125 are also pending. Objective - Constitutional Vitals: Last Vital Signs Temp 98.9 F 12/05/16 10:00 Pulse 123 H 12/05/16 10:00 Resp 20 12/06/16 05:29 BP 125/76 12/05/16 10:00 Pulse Ox 96 12/05/16 14:29 Performance status: 3-limited selfcare - Neck Neck: supple - Respiratory Respiratory effort: Positive: normal Respiratory: bilateral: CTA - Cardiovascular Rhythm: regular - Gastrointestinal General gastrointestinal: Present: other (softer) - Labs Lab Results: Laboratory Results - last 24 hr 12/05/16 12/05/16 12/05/16 09:14 10:13 10:13 WBC 9.2 RBC 4.08 Hgb 11.8 Hct 35.7 MCV 87 MCH 29 MCHC 33 RDW 12.7 L Plt Count 389 Lymph % (Auto) 5.3 L [place] % (Auto) 10.6 H Eos % (Auto) 0.2 Baso % (Auto) 0.1 Lymph # 0.5 L [place] # 1.0 H Eos # 0.0 Baso # 0.0 Seg Neutrophils % 83.8 H Seg Neutrophils # 7.7 PT 15.0 H INR 1.19 H Sodium 131 L Potassium 3.8 Chloride 93.8 L Carbon Dioxide 22 Anion Gap 19 BUN 6 L Creatinine 0.5 L Estimated GFR > 60 BUN/Creatinine Ratio 12.00 Glucose 174 H Calcium 8.8 Total Bilirubin 0.30 AST 26 ALT 20 Alkaline Phosphatase 68 Total Protein 6.4 Albumin 3.1 L Albumin/Globulin Ratio 0.9 Fluid Type Fluid Color Fluid Appearance Fluid WBC Fluid RBC Fluid Seg Neutrophils Fluid Lymphocytes Fluid Reactive Lymphs Fluid Monocytes Fluid Eosinophils Fluid Basophils Fluid Comment Hep Bs Antigen Hepatitis C Antibody 12/05/16 12/05/16 12/05/16 10:13 10:13 Unknown WBC RBC Hgb Hct MCV MCH MCHC RDW Plt Count Lymph % (Auto) [place] % (Auto) Eos % (Auto) Baso % (Auto) Lymph # [place] # Eos # Baso # Seg Neutrophils % Seg Neutrophils # PT INR Sodium Potassium Chloride Carbon Dioxide Anion Gap BUN Creatinine Estimated GFR BUN/Creatinine Ratio Glucose Calcium Total Bilirubin AST ALT Alkaline Phosphatase Total Protein Albumin Albumin/Globulin Ratio Fluid Type Paracentesis Fluid Color Yellow Fluid Appearance Hazy Fluid WBC 528 Fluid RBC 2063 Fluid Seg Neutrophils 7.0 Fluid Lymphocytes 67.0 Fluid Reactive Lymphs 0 Fluid Monocytes 26.0 Fluid Eosinophils 0 Fluid Basophils 0 Fluid Comment Diff performed Hep Bs Antigen Non-reactive Hepatitis C Antibody Non-reactive
[2016-12-06] MEDS ORDERED: NON-FORMULARY (Omeprazole Magnesium [Prilosec Otc] 40 MG) PO SCH (10:00)
[2016-12-06] MEDS ORDERED: PROTONIX PO SCH (10:00)
[2016-12-06] MEDS ORDERED: COZAAR PO SCH (10:00)
[2016-12-06] MEDS ORDERED: TENORMIN PO SCH (10:00)
[2016-12-06] MEDS ORDERED: PAMELOR PO SCH (10:00)
[2016-12-06] MEDS: LEVAQUIN 750MG/150ML 750 MG/150 ML BAG IV SCH (10:03)
[2016-12-06] MEDS: LOVENOX SUB-Q SCH (10:04)
[2016-12-06 10:09] VITALS: BP 140/86
[2016-12-08 23:35] LABS: Total Protein,Body Fluid 4.6 (15.0-45.0)
== END 2016-12-06 13:30 | disposition home or self-care (01) | DRG 749 ==
LOC: ED 14:59 → CC2 12-05 03:15
PROVIDERS: ADMIT Internal Medicine; ATTEND Internal Medicine
PROC: 0W9G3ZX Drainage of Peritoneal Cavity, Percutaneous Approach, Diagnostic (ICD-10-PCS; principal; 2016-12-05)
DX: C56.9 Malignant neoplasm of unspecified ovary (principal); R18.0 Malignant ascites; E87.1 Hypo-osmolality and hyponatremia; K52.9 Noninfective gastroenteritis and colitis, unspecified; I10 Essential (primary) hypertension; E78.5 Hyperlipidemia, unspecified; J45.909 Unspecified asthma, uncomplicated; Z90.49 Acquired absence of other specified parts of digestive tract; Z79.899 Other long term (current) drug therapy; Z82.49 Family history of ischemic heart disease and other diseases of the circulatory system; E78.00 Pure hypercholesterolemia, unspecified
CPT/HCPCS: 36415; 49083; 74020; 74177; 80053; 81001; 82040; 83690; 84160; 85025; 85610; 86301; 86304; 86706; 86803; 87040; 87116; 88112; 88305; 88341; 88342; 89051; 96361; 96365; 96375; 99285; J1650; J1956; J2270; J2543; J7030; J7040; Q9967

== ENCOUNTER 2016-12-16 12:55 | Day surgery (SDC) | payer MEDICARE ==
--- NOTE | 2016-12-16 15:08 | Ultrasound Report ---
ULTRASOUND PARACENTESIS HISTORY: Ascites, possible ovarian cancer. DESCRIPTION OF PROCEDURE: Informed consent was obtained. Sterile technique was utilized. 1% lidocaine for skin anesthesia. Using ultrasound guidance, a 5 [place]ian centesis needle was advanced into the left lower quadrant peritoneal space. There was spontaneous return of clear yellow fluid. 1.7 L of fluid was aspirated and discarded. No complications. IMPRESSION: Successful ultrasound-guided paracentesis.
--- NOTE | 2016-12-16 15:10 | Short Stay Summary ---
Short Stay Documentation Date of service: 12/16/16 - History Principal diagnosis: ascites, possible ovarian cancer H&P: obtained from office - Allergies and Medications Current Medications: Allergies No Known Allergies Allergy (Unverified 10/24/16 13:41) Home Medications Medication Instructions Recorded Confirmed Last Taken Type Gabapentin [Neurontin] 100 mg PO Q8HR #90 capsule 12/14/16 12/16/16 12/15/16 Rx 100mg HYDROcodone/APAP 5-325 [[place] 1 each PO Q4H PRN #30 tablet 12/14/16 12/16/16 04:00 Rx 5-325 mg TAB] Nortriptyline [Pamelor] 25 mg PO QDAY #30 capsule 12/14/16 12/16/16 12/15/16 Rx 25mg Pantoprazole [Protonix TAB] 40 mg PO DAILY #30 tablet 12/14/16 12/16/16 Rx 40mg Polyethylene Glycol 3350 [Miralax 17 gm PO QDAY PRN #30 packet 12/14/1612/15/16 Rx 3350] 1 Sennosides/Docusate Sodium 2 each PO HS PRN #60 tablet 12/14/16 12/16/16 Rx [Senna-S Tablet] 2 tab - Physical exam General appearance: mild distress Gastrointestinal: distended - Brief post op/procedure progress note Date of procedure: 12/16/16 Pre-op diagnosis: ascites Post-op diagnosis: same Procedure: US paracentesis Anesthesia: local Surgeon: LEXIE CLAYTON Estimated blood loss: none Pathology: none Specimen disposition: discarded Condition: stable - Disposition Condition at discharge: Good Disposition: DC-01 TO HOME OR SELFCARE Short Stay Discharge Plan Follow up with: PRIMARY CARE, [Primary Care Provider] - 7 Days
[2016-12-16] MEDS ORDERED: ALBURX 25% (ALBUMIN) IV PRN (15:11)
[2016-12-16 16:05] VITALS: BP 107/64
== END 2016-12-16 16:10 | disposition home or self-care (01) ==
LOC: OPU 12:55
PROVIDERS: ATTEND Internal Medicine Hematology & Oncology
DX: R18.8 Other ascites (principal)
CPT/HCPCS: 49083

== ENCOUNTER 2016-12-20 06:54 | Day surgery (SDC) | payer MEDICARE, MEDICAID ==
--- NOTE | 2016-12-20 11:06 | Ultrasound Report ---
ULTRASOUND PARACENTESIS History: Ascites. Description of procedure: Informed consent was obtained. An lab clerk was utilized. Sterile technique was utilized. 1% lidocaine for skin anesthesia. Using ultrasound guidance, a 5 [place] centesis needle was advanced into the left lower quadrant peritoneal space. There was spontaneous return of relatively clear yellow fluid. 2.1 L of fluid was aspirated. 120 cc of fluid was sent to lab for analysis. Impression: Successful ultrasound-guided paracentesis.
--- NOTE | 2016-12-20 11:08 | Short Stay Summary ---
Short Stay Documentation Date of service: 12/20/16 - History Principal diagnosis: ascites H&P: obtained from office - Allergies and Medications Current Medications: Allergies No Known Allergies Allergy (Verified 12/20/16 08:14) Home Medications Medication Instructions Recorded Confirmed Last Taken Type Gabapentin [Neurontin] 100 mg PO Q8HR #90 capsule 12/14/16 12/20/16 12/19/16 Rx HYDROcodone/APAP 5-325 [[place] 1 each PO Q4H PRN #30 tablet 12/14/16 12/20/16 Rx 5-325 mg TAB] Nortriptyline [Pamelor] 25 mg PO QDAY #30 capsule 12/14/16 12/20/16 12/19/16 Rx Pantoprazole [Protonix TAB] 40 mg PO DAILY #30 tablet 12/14/16 12/20/16 Rx Polyethylene Glycol 3350 [Miralax 17 gm PO QDAY PRN #30 packet 12/14/1612/19/16 Rx 3350] Sennosides/Docusate Sodium 2 each PO HS PRN #60 tablet 12/14/16 12/20/16 Rx [Senna-S Tablet] - Physical exam General appearance: mild distress Gastrointestinal: tenderness, distended - Brief post op/procedure progress note Date of procedure: 12/20/16 Pre-op diagnosis: ascites Procedure: US paracentesis Anesthesia: local Surgeon: LEXIE CLAYTON Estimated blood loss: none Pathology: list (120cc) Specimen disposition: to lab Condition: stable - Disposition Condition at discharge: Good Disposition: DC-01 TO HOME OR SELFCARE Short Stay Discharge Plan Follow up with: PRIMARY CARE, [Primary Care Provider] - 7 Days
[2016-12-20] MEDS ORDERED: ALBURX 25% (ALBUMIN) IV PRN (11:10)
[2016-12-20 11:14] VITALS: BP 129/79
[2016-12-20 11:56] LABS: Reactive Lymph Body Fluid 0 %
[2016-12-20 11:57] LABS: Eosinophils Body Fluid 0 %; Seg Neutrophils Body Fluid 0 %
== END 2016-12-20 10:45 | disposition home or self-care (01) ==
LOC: OPU 06:54 → EDSTATUS 07:30 → OPU 10:45
PROVIDERS: ATTEND Internal Medicine Hematology & Oncology
DX: R18.8 Other ascites (principal)
CPT/HCPCS: 49083; 82040; 83605; 84160; 87116; 88112; 88305; 88342; 89051